=== PATIENT | male | born 1960 | race African-American/Black ===

== ENCOUNTER 2018-01-27 12:54 | Inpatient (IN) | payer BC, OTHER ==
[2018-01-27 14:38] VITALS: BMI 30.5
--- NOTE | 2018-01-27 17:11 | HP ---
CIWA Score Nausea/Vomitin Muscle Tremors: 4-Moderate,w/Arms Extend Anxiety: 2 Agitation: 2 Paroxysmal Sweats: 2 Orientation: 0-Oriented Tacttile Disturbances: 0-None Auditory Disturbances: 0-None Visual Disturbances: 0-None Headache: 0-None Present CIWA-Ar Total Score: 12 - Admission Criteria OASAS Guidelines: Admission for Medically Managed Detox: Requires at least one of the followin. CIWA greater than 12 2. Seizures within the past 24 hours 3. Delirium tremens within the past 24 hours 4. Hallucinations within the past 24 hours 5. Acute intervention needed for co occurring medical disorder 6. Acute intervention needed for co occurring psychiatric disorder 7. Severe withdrawal that cannot be handled at a lower level of care (continued vomiting, continued diarrhea, abnormal vital signs) requiring intravenous medication and/or fluids 8. Patient presents the following: CIWA greater than 12 Admission Criteria Met: Admission criteria met Admission [facility] Chief Complaint: "i'm here for detox and rehab for crack and alcohol" Allergies/Adverse Reactions: Allergies Allergy/AdvReac Type Severity Reaction Status Date / Time No Known Allergies Allergy Verified 01/27/18 16:45 History of Present Illness: 57 yo h/o anxiety, not on any meds. Was at [facility] drinking and using drugs and decided to come to detox. because he does not want to be drinking anymore. Last detox 20 years ago. alcohol use: a fifth a day of all kinds- whiskey, wine..No h/o seizures, but has had black outs Uses $40 crack a day. Recent in ER after he had suture repair after a laceration at [facility]- never had the sutures removed, L leg Gets money by panhandling. On disability for psychological issues, also gets Section8 housing. DUR/Istop: no controlled substances Utox: Lizbeth only, BRUNO- neg Exam Limitations: No Limitations - Ebola screening Have you been sick,other than usual withdrawal symptoms: No - Review of Systems Constitutional: No Symptoms Reported EENT: reports: No Symptoms Reported Respiratory: reports: No Symptoms reported Cardiac: reports: No Symptoms Reported GI: reports: No Symptoms Reported : reports: No Symptoms Reported Musculoskeletal: reports: Back Pain (did not go to ER, says he has difficulty) Integumentary: reports: No Symptoms Reported Neuro: reports: No Symptoms reported Endocrine: reports: No Symptoms Reported Hematology: reports: No Symptoms Reported Psychiatric: reports: No Sypmtoms Reported Other Systems: Reviewed and Negative Patient History - Patient Medical History Hx Asthma: No Hx Chronic Obstructive Pulmonary Disease (COPD): No Hx Cancer: No Hx Cardiac Disorders: No Hx Congestive Heart Failure: No Hx Hypertension: Yes Hx Hypercholesterolemia: No Hx Pacemaker: No HX Cerebrovascular Accident: No Hx Seizures: No Hx Dementia: No Hx Diabetes: No Hx Gastrointestinal Disorders: No Hx Liver Disease: No Hx Genitourinary Disorders: No Hx Sexually Transmitted Disorders: No Hx Renal Disease (ESRD): No Hx Thyroid Disease: No - Patient Surgical History Past Surgical History: No - PPD History Documented Results: Negative w/o proof - Smoking Cessation Smoking history: Current every day smoker Have you smoked in the past 12 months: Yes Aproximately how many cigarettes per day: 10 Hx Chewing Tobacco Use: No Initiated information on smoking cessation: No 'Breaking Loose' booklet given: 01/27/18 - Substance & Tx. History Hx Alcohol Use: Yes Hx Substance Use: Yes Substance Use Type: Cocaine - Substances Abused Alcohol Route: Oral Frequency: Daily Amount used: 5TH RUM, WINE, GIN, WISKY. Age of first use: 26 Date of Last Use: 01/27/18 Crack Route: Smoking Frequency: Daily Amount used: $40 Age of first use: 31 Date of Last Use: 01/24/18 Family Disease History - Family Disease History Other Family History: pt states he does not get along with his family Admission Physical Exam BHS - Vital Signs Vital Signs: Vital Signs - 24 hr 01/27/18 14:36 Temperature 98.2 F Pulse Rate 86 Respiratory 18 Rate Blood Pressure 186/105 H - Physical General Appearance: Yes: Within Normal Limits HEENTM: Yes: Within Normal Limits Respiratory: Yes: Within Normal Limits Neck: Yes: Within Normal Limits Cardiology: Yes: Within Normal Limits Abdominal: Yes: Within Normal Limits Genitourinary: Yes: Within Normal Limits Back: Yes: Within Normal Limits, Normal Inspection, CVA Tenderness Musculoskeletal: Yes: Within Normal Limits, Back pain (pain when first standing up after sitting down for a long period of time) Extremities: Yes: Within Normal Limits, Other (with sutures in place, L leg- no evidence of cellulitis) Neurological: Yes: Within Normal Limits Integumentary: Yes: Within Normal Limits - Diagnostic (1) Alcohol use disorder Current Visit: Yes Status: Acute (2) Cocaine abuse Current Visit: Yes Status: Acute (3) Anxiety Current Visit: Yes Status: Acute (4) Back pain Current Visit: Yes Status: Acute Qualifiers: Back pain location: low back pain Chronicity: chronic Back pain laterality: midline Urine Drug Screen - Results Drug Screen Negative: No Urine Drug Screen Results: BAR-Barbiturates
[2018-01-27] MEDS ORDERED: LOPERAMIDE HCL 2 MG CAPSULE PO PRN (17:23)
[2018-01-27] MEDS ORDERED: IBUPROFEN 400 MG TABLET (FP) PO PRN (17:23)
[2018-01-27] MEDS ORDERED: guaiFENesin/D-METHORPHAN HB 10 ML UNIT-DOSE CUPS PO PRN (17:23)
[2018-01-27] MEDS ORDERED: MAGNESIUM HYDROX 2400MG/30ML ORAL SUSPENSION 30 ML CUP PO PRN (17:23)
[2018-01-27] MEDS ORDERED: ACETAMINOPHEN 325 MG TABLET (FP) PO PRN (17:23)
[2018-01-27] MEDS ORDERED: MAG HYDROX/AL HYDROX/SIMETH 30 ML UNIT-DOSE CUP PO PRN (17:23)
[2018-01-27] MEDS ORDERED: MENTHOL/PHENOL 1 EACH UD MM PRN (17:23)
[2018-01-27] MEDS ORDERED: MAGNESIUM CITRATE 300 ML BOTTLE PO PRN (17:23)
[2018-01-27] MEDS ORDERED: P-EPHED 60MG/TRIPROLIDI 2.5MG TABLET PO PRN (17:23)
[2018-01-27] MEDS ORDERED: chlordiazePOXIDE HCL 25 MG CAPSULE PO PRN (17:24)
[2018-01-27] MEDS ORDERED: chlordiazePOXIDE HCL 25 MG CAPSULE PO ONE (18:00)
[2018-01-27 22:55] LABS: URINE APPEARANCE TURBID; URINE BILIRUBIN NEGATIVE (<2.0 mg/dL); URINE COLOR AMBER; URINE GLUCOSE (UA) NEGATIVE (NEGATIVE); URINE KETONE TRACE (NEGATIVE); URINE LEUK ESTERASE NEGATIVE (NEGATIVE); URINE NITRITE NEGATIVE (NEGATIVE); URINE PROTEIN NEGATIVE (NEGATIVE)
[2018-01-27] MEDS: THIAMINE HCL 100 MG TABLET (FP) PO SCH (23:23)
[2018-01-27] MEDS: chlordiazePOXIDE HCL 25 MG CAPSULE PO SCH (23:23)
[2018-01-27] MEDS: METHYL SALICYLATE/MENTHOL OINT 30 GM TUBE TP SCH (23:24)
[2018-01-28] MEDS: chlordiazePOXIDE HCL 25 MG CAPSULE PO SCH ×4 (06:45→22:33)
--- NOTE | 2018-01-28 07:40 | CONSULT ---
[facility] Psychiatric Consult - Data Date of interview: 01/28/18 Admission source: [facility] Identifying data: 57 yo h/o anxiety, not on any meds. Was at [facility] drinking and using drugs and decided to come to detox. because he does not want to be drinking anymore. Last detox 20 years ago. alcohol use: a fifth a day of all kinds- whiskey, wine..No h/o seizures, but has had black outs. Uses $40 crack a day. Recent in ER after he had suture repair after a laceration at [facility]- never had the sutures removed, L leg. Gets money by panhandling. On disability for psychological issues, also gets Section8 housing. DUR/Istop: no controlled substances. Utox: Lizbeth only, BRUNO- neg Substance Abuse History: - Smoking Cessation. Smoking history: Current every day smoker. Have you smoked in the past 12 months: Yes. Aproximately how many cigarettes per day: 10. Hx Chewing Tobacco Use: No. Initiated information on smoking cessation: No. 'Breaking Loose' booklet given: 01/27/18. - Substance & Tx. History. Hx Alcohol Use: Yes. Hx Substance Use: Yes. Substance Use Type : Cocaine. - Substances Abused. Alcohol. Route: Oral. Frequency: Daily. Amount used: 5TH RUM, WINE, GIN, WISKY. Age of first use: 26. Date of Last Use : 01/27/18. Crack. Route: Smoking. Frequency: Daily. Amount used: $40. Age of first use: 31. Date of Last Use: 01/24/18 Medical History: Head trauma history, HTN Psychiatric History: -Patient reports history pf anxiety and depression, denies suicidal and homicidal history, reports no meedications taking prior to admission Physical/Sexual Abuse/Trauma History: Denies Additional Comment: Observation. Detox Unit Care Protocol Mental Status Exam - Mental Status Exam Alert and Oriented to: Person Cognitive Function: Fair Patient Appearance: Unkempt Mood: Sad Affect: Flat Patient Behavior: Sedated Speech Pattern: Delayed Voice Loudness: Mildly Soft/Quiet Thought Process: Circumstantial Thought Disorder: Being Controlled Hallucinations: Denies Suicidal Ideation: Denies Homicidal Ideation: Denies Insight/Judgement: Fair Sleep: Difficulty falling asleep Muscle strength/Tone: Mild Hypotonicity Gait/Station: Shuffling Additional Comments: Observation. Detox Unit Care Protocol Psychiatric Findings - Problem List (C[place] 1, 2,3) (1) Nicotine dependence Current Visit: Yes Status: Acute (2) Alcohol use disorder Current Visit: Yes Status: Acute (3) Cocaine abuse Current Visit: Yes Status: Acute
--- NOTE | 2018-01-28 10:19 | PN ---
S CIWA - CIWA Score Nausea/Vomitin-No Nausea/No Vomiting Muscle Tremors: 3 Anxiety: 2 Agitation: 1-Slight > Activity Paroxysmal Sweats: 4-Forehead w/Sweat Beads Orientation: 0-Oriented Tacttile Disturbances: 0-None Auditory Disturbances: 0-None Visual Disturbances: 0-None Headache: 0-None Present CIWA-Ar Total Score: 10 BHS Progress Note (SOAP) Subjective: Sweats Lower back pain Sleep disturbance Objective: 01/28/18 10:16 Sleeping in bed A & O x 3 Sweats to forehead Not in acute distress Vital Signs Temperature 97.7 F 01/28/18 09:31 Pulse Rate 61 01/28/18 09:31 Respiratory Rate 18 01/28/18 09:31 Blood Pressure 147/75 01/28/18 09:31 O2 Sat by Pulse Oximetry (%) Laboratory Last Values Urine Color Bárbara 01/27/18 22:00 Urine Appearance Turbid 01/27/18 22:00 Urine pH 5.0 (5.0-8.0) 01/27/18 22:00 Ur Specific [place] 1.030 (1.010-1.035) 01/27/18 22:00 Urine Protein Negative (NEGATIVE) 01/27/18 22:00 Urine Glucose (UA) Negative (NEGATIVE) 01/27/18 22:00 Urine Ketones Trace (NEGATIVE) H 01/27/18 22:00 Urine Blood Negative (NEGATIVE) 01/27/18 22:00 Urine Nitrite Negative (NEGATIVE) 01/27/18 22:00 Urine Bilirubin Negative (<2.0 mg/dL) 01/27/18 22:00 Urine Urobilinogen 2.0 mg/dL (0.2-1.0) 01/27/18 22:00 Ur Leukocyte Esterase Negative (NEGATIVE) 01/27/18 22:00 UA noted Labs pending Assessment: 01/28/18 10:18 Withandrei sx Dehydration Plan: Continue detox Increase hydration F/u on lab results
[2018-01-28 10:22] LABS: HEMATOCRIT 45.5 % (35.4-49); HEMOGLOBIN 14.4 GM/dL (11.7-16.9); MCH 27.3 pg (25.7-33.7); MCHC 31.7 g/dl (32.0-35.9); MEAN PLT VOLUME 8.2 fl (7.5-11.1); PLATELET COUNT 200 K/MM3 (134-434); RBC 5.29 M/mm3 (4.00-5.60); RDW 14.3 % (11.9-15.9); WHITE BLOOD COUNT 5.2 K/mm3 (4.0-10.0)
[2018-01-28] MEDS: PRENATAL VITAMINS W/ FOLIC ACID TABLET (FP) PO SCH (10:23)
[2018-01-28] MEDS: METHYL SALICYLATE/MENTHOL OINT 30 GM TUBE TP SCH ×2 (10:25→23:10)
[2018-01-28 11:05] LABS: ALBUMIN 3.8 g/dl (3.4-5.0); ALK PHOS 80 U/L (45-117); ANION GAP 9 MMOL/L (8-16); BILIRUBIN,TOTAL 0.7 mg/dL (0.2-1); BLOOD UREA NITROGEN 14 mg/dL (7-18); CALCIUM 8.9 mg/dL (8.5-10.1); CHLORIDE 105 mmol/L (98-107); CO2 27 mmol/L (21-32); CREATININE 1.3 mg/dL (0.55-1.3); GLUCOSE,RANDOM 114 mg/dL (74-106); POTASSIUM 4.2 mmol/L (3.5-5.1); SGOT/AST 40 U/L (15-37); SGPT/ALT 33 U/L (13-61); SODIUM 141 mmol/L (136-145); TOT PROT 7.2 g/dl (6.4-8.2)
[2018-01-28] MEDS: MELATONIN 5 MG TABLETS PO PRN (22:33)
[2018-01-28] MEDS: THIAMINE HCL 100 MG TABLET (FP) PO SCH (22:33)
[2018-01-28] MEDS ORDERED: cloNIDine HCL 0.1 MG TABLET PO PRN (23:21)
[2018-01-29] MEDS: chlordiazePOXIDE HCL 25 MG CAPSULE PO SCH ×3 (06:15→17:40)
[2018-01-29] MEDS: PRENATAL VITAMINS W/ FOLIC ACID TABLET (FP) PO SCH (10:55)
[2018-01-29] MEDS: METHYL SALICYLATE/MENTHOL OINT 30 GM TUBE TP SCH ×2 (10:55→23:03)
--- NOTE | 2018-01-29 11:23 | PN ---
[facility] CIWA - CIWA Score Nausea/Vomitin-No Nausea/No Vomiting Muscle Tremors: 3 Anxiety: 3 Agitation: 2 Paroxysmal Sweats: 2 Orientation: 0-Oriented Tacttile Disturbances: 0-None Auditory Disturbances: 0-None Visual Disturbances: 0-None Headache: 0-None Present CIWA-Ar Total Score: 10 S Progress Note (SOAP) Subjective: sweats agitation tired interrupted sleep Objective: 01/29/18 11:22 Vital Signs Temperature 96.9 F L 01/29/18 09:47 Pulse Rate 74 01/29/18 09:47 Respiratory Rate 18 01/29/18 09:47 Blood Pressure 156/99 01/29/18 09:47 O2 Sat by Pulse Oximetry (%) aaox3 ambulating no acute distress Assessment: 01/29/18 11:23 withdrawal sx Plan: continue detox increase fluids
[2018-01-29] MEDS: chlordiazePOXIDE 5 MG CAPSULE PO SCH (23:02)
[2018-01-29] MEDS: MELATONIN 5 MG TABLETS PO PRN (23:02)
[2018-01-29] MEDS: THIAMINE HCL 100 MG TABLET (FP) PO SCH (23:02)
[2018-01-30] MEDS: chlordiazePOXIDE 5 MG CAPSULE PO SCH ×3 (05:50→16:49)
[2018-01-30] MEDS ORDERED: amLODIPine BESYLATE 10 MG TABLET (FP) PO ONE (09:43)
[2018-01-30] MEDS ORDERED: HYDROCHLOROTHIAZIDE 25 MG TABLET (FP) PO ONE (09:43)
[2018-01-30] MEDS: METHYL SALICYLATE/MENTHOL OINT 30 GM TUBE TP SCH ×2 (10:07→22:08)
[2018-01-30] MEDS: PRENATAL VITAMINS W/ FOLIC ACID TABLET (FP) PO SCH (10:07)
--- NOTE | 2018-01-30 11:36 | PN ---
BHS Progress Note (SOAP) Subjective: groggy sweats Objective: 01/30/18 11:30 Vital Signs Temperature 97.5 F L 01/30/18 09:33 Pulse Rate 62 01/30/18 09:33 Respiratory Rate 18 01/30/18 09:33 Blood Pressure 171/95 H 01/30/18 09:33 O2 Sat by Pulse Oximetry (%) aaox3 ambulating no acute distress elevated BP noted Assessment: 01/30/18 11:30 withdrawal sx Plan: continue detox increase fluids clonidine 0.1mg x one d/c in am
[2018-01-30] MEDS: THIAMINE HCL 100 MG TABLET (FP) PO SCH (22:07)
[2018-01-30] MEDS: chlordiazePOXIDE HCL 10 MG CAPSULE PO SCH (22:07)
[2018-01-31] MEDS: chlordiazePOXIDE HCL 10 MG CAPSULE PO SCH ×2 (06:09→10:56)
[2018-01-31 09:09] VITALS: BP 166/92; PULSE 60; TEMP 98.2
--- NOTE | 2018-01-31 09:09 | DS ---
[facility] Detox Discharge Summary Admission Date: 01/27/18 Discharge Date: 01/31/18 - History Present History: Alcohol Dependence, Cocaine Dependence - Physical Exam Results Vital Signs: Vital Signs Temperature 97.5 F L 01/31/18 07:29 Pulse Rate 59 L 01/31/18 07:29 Respiratory Rate 18 01/31/18 07:29 Blood Pressure 144/78 01/31/18 07:29 O2 Sat by Pulse Oximetry (%) - Treatment Hospital Course: Detox Protocol Followed, Detoxed Safely, Responded well, Discharged Condition Good, Rehab Referral Accepted - Medication Discharge Medications: Ambulatory Orders NK [No Known Home Medication] 01/27/18 - Diagnosis (1) Alcohol use disorder Current Visit: Yes Status: Acute (2) Anxiety Current Visit: Yes Status: Acute (3) Back pain Current Visit: Yes Status: Acute Qualifiers: Back pain location: low back pain Chronicity: chronic Back pain laterality: midline (4) Cocaine abuse Current Visit: Yes Status: Acute (5) Dehydration Current Visit: Yes Status: Acute (6) Nicotine dependence Current Visit: Yes Status: Acute Qualifiers: Nicotine product type: cigarettes Substance use status: uncomplicated Qualified Code(s): F17.210 - Nicotine dependence, cigarettes, uncomplicated (7) Uncomplicated alcohol dependence Current Visit: Yes Status: Chronic - AMA Did Patient Leave Against Medical Advice: No (going home)
[2018-01-31] MEDS: METHYL SALICYLATE/MENTHOL OINT 30 GM TUBE TP SCH (10:55)
[2018-01-31] MEDS: PRENATAL VITAMINS W/ FOLIC ACID TABLET (FP) PO SCH (10:55)
== END 2018-01-31 11:11 | disposition home or self-care (01) | DRG 774 ==
LOC: YASAS 12:54 → Y6N 16:32
PROC: HZ2ZZZZ Detoxification Services for Substance Abuse Treatment (ICD-10-PCS; principal; 2018-01-27)
DX: F10.20 Alcohol dependence, uncomplicated (principal); F14.10 Cocaine abuse, uncomplicated; F17.210 Nicotine dependence, cigarettes, uncomplicated; F41.9 Anxiety disorder, unspecified; I10 Essential (primary) hypertension; E86.0 Dehydration; M54.5 Low back pain; G89.29 Other chronic pain
CPT/HCPCS: 36415; 80053; 81003; 85027; 86593; 87389; J0735